=== PATIENT | female | born 1975 | race Caucasian/White ===

== ENCOUNTER 2018-10-15 12:36 | Emergency (ER) | payer BC, OTHER ==
--- NOTE | 2018-10-15 14:51 | UC ---
Skin Complaint HPI - HPI Summary HPI Summary: 43 y/o female presents to the urgent care c/o and infected wound on her RT middle finger s/p laceration about 1 week ago. Pt reports she cut her finger w / a big glass. She though it was very superficial that didn't seek medical attention. However w/ the day she has noticed mild redness around wound and yesterday her finger was swollen w/ mild yellowish drainage. She used car renovator move her finger w/o any difficulty. Pt is UTD w/ Tetanus vaccine. Pt denies fever, numbness around Rt middle finger or Rt hand, SOB, chest pain, abdominal pain, N/ V/D. She has applied OTC triple antibiotic since yesterday. - History of Current Complaint Chief Complaint: UCUpperExtremity Time Seen by Provider: 10/15/18 14:46 Stated Complaint: WOUND ON FINGER Hx Obtained From: Patient Hx Last Menstrual Period: 10/12/18 ?: No Onset/Duration: Sudden Onset, Lasting Weeks - 1 week, Still Present, Worse Since - yesterday w/ mild yellowish drainage Skin Exposure Onset/Duration: Weeks Ago - 1 week, Worse Since: - yesterday Timing: Constant Onset Severity: Mild Current Severity: Moderate Pain Intensity: 7 - at touch Pain Scale Used: 0-10 Numeric Location: Discrete - lateral side of the Rt middle finger Character: Swelling, Redness, Painful Aggravating Factor(s): Touch Alleviating Factor(s): OTC Creams/Salves Associated Signs & Symptoms: Positive: Rash - infected laceration in the RT middle finger. Negative: Fever, Chills, Wheezing, Chest Pain Related History: Other: - superficial laceration - Allergy/Home Medications Allergies/Adverse Reactions: Allergies Allergy/AdvReac Type Severity Reaction Status Date / Time Penicillins Allergy Hives Verified 10/15/18 13:09 Home Medications: Home Medications DULoxetine CAP* [Cymbalta CAP*] 120 mg PO DAILY 10/15/18 [History Confirmed 10/15/18] PMH/Surg Hx/FS Hx/Imm Hx Previously Healthy: Yes - Pt denies PMHX - Surgical History Surgical History: Yes Surgery Procedure, Year, and Place: nose - Family History Known Family History: Positive: None - Pt denies FMHX - Social History Occupation: Employed Full-time Lives: With Family Alcohol Use: Occasionally Substance Use Type: None Smoking Status (MU): Never Smoked Tobacco - Immunization History Hx Tetanus, Diphtheria Vaccination: Yes Review of Systems All Other Systems Reviewed And Are Negative: Yes Constitutional: Positive: Negative Skin: Positive: Other - infected lateration on the Rt middle finger Eyes: Positive: Negative ENT: Positive: Negative Respiratory: Positive: Negative Cardiovascular: Positive: Negative Gastrointestinal: Positive: Negative Genitourinary: Positive: Negative Motor: Positive: Negative Neurovascular: Positive: Negative Musculoskeletal: Positive: Other: - Rt middle finger s/p infected laceration Neurological: Positive: Negative Psychological: Positive: Negative Is Patient Immunocompromised?: No Physical Exam - Summary Physical Exam Summary: Vital Signs Reviewed: Yes General: well appearing, well nourished female in no acute apparent pain distress, sitting comfortably on examining table Eye Exam: Normal Eyes: Positive: Conjunctiva Clear - PERRLA< EOMI, fundi grossly normal ENT: Positive: Normal ENT inspection, Hearing grossly normal, Pharynx normal, TMs normal Neck: Positive: Supple, Nontender, No Lymphadenopathy Respiratory: Positive: Chest non-tender, Lungs clear, Normal breath sounds, No respiratory distress Cardiovascular: Positive: RRR, No Murmur, Pulses Normal, Brisk Capillary Refill Abdomen Description: Positive: Nontender, No Organomegaly, Soft. Negative: CVA Tenderness (R), CVA Tenderness (L) Bowel Sounds: Positive: Present Musculoskeletal: Positive: Strength Intact, ROM Intact, No Edema Neurological: Positive: Alert, Muscle Tone Normal Psychological Exam: Normal Skin: Positive: lateral side of the RT middle finger w/ a superficial linear laceration about 1.5cm in size w/ sorrounding erythematous patch w/ indistinct borders, warm and tender to palpation, no drainage observed. pulses WNL, capillary refill brisk, sensation WNL. Triage Information Reviewed: Yes Vital Signs: Initial Vital Signs Temp 97.8 F 10/15/18 13:05 Pulse 78 10/15/18 13:05 Resp 16 10/15/18 13:05 BP 104/62 10/15/18 13:05 Pulse Ox 100 10/15/18 13:05 Course/Dx - Course Course Of Treatment: 43 y/o female presents to the urgent care c/o and infected wound on her RT middle finger s/p laceration about 1 week ago. Pt reports she cut her finger w / a big glass. She though it was very superficial that didn't seek medical attention. However w/ the day she has noticed mild redness around wound and yesterday her finger was swollen w/ mild yellowish drainage. She used car renovator move her finger w/o any difficulty. Pt is UTD w/ Tetanus vaccine. Pt denies fever, numbness around Rt middle finger or Rt hand, SOB, chest pain, abdominal pain, N/ V/D. She has applied OTC triple antibiotic since yesterday. Hx obtained. Pt w/ cellulitis on Rt middle finger s/p superficial laceration on examination. Wound irrigated with saline water. bacitracin applied and covered with a sterile dressing. Pt Rx Keflex PO and MUpuracin topical cream. Pt advised if not improvement of symptoms to return to the urgent care or f/u with her PCP. If redness doubles in size or fever develops despite taking ABX to go immediately to the ER. Pt understood and agreed w/ plan of care. - Differential Diagnoses - Skin Complaint Differential Diagnoses: Abscess, Cellulitis, Contact Dermatitis, MRSA - Diagnoses Provider Diagnosis: Infected finger laceration Discharge ED - Sign-Out/Discharge Documenting (check all that apply): Patient Departure - d/c home All imaging exams completed and their final reports reviewed: No Studies - Discharge Plan Condition: Stable Disposition: HOME Prescriptions: Cephalexin CAP* [Keflex CAP*] 500 mg PO TID #21 cap Mupirocin 2% OINT* [Bactroban 2 % Oint*] 1 applic TOPICAL BID #1 tube Patient Education Materials: Wound Infection (ED) Referrals: [facility] [Outside] - 3 Days Additional Instructions: 1-Please take full course of Antibiotic. Take yogurts w/ probiotics or Culturelle to protect your GI system 2- If redness and swelling doubles in size after 48 hrs of taking antibiotic and fever develops please go to the ER immediately or return to the ER for further management. 3-Avoid flexing your finger , keep it elevated and keep wound clean and dry. Apply Bactroban as directed 4-Please F/u with your PCP in 3 days for further evaluation and treatment. - Billing Disposition and Condition Condition: STABLE Disposition: Home - Attestation Statements Provider Attestation: Per institutional requirements, I have reviewed the chart, however, I was not consulted specifically or made aware of this patient by the midlevel provider. I did not personally evaluate, interact with , or disposition this patient.
== END 2018-10-15 15:26 | disposition home or self-care (01) ==
LOC: UCEAST 12:36
DX: S61.219A Laceration without foreign body of unspecified finger without damage to nail, initial encounter (principal); L08.9 Local infection of the skin and subcutaneous tissue, unspecified; X58.XXXA Exposure to other specified factors, initial encounter; Y92.9 Unspecified place or not applicable
CPT/HCPCS: 99202; G0463